=== PATIENT | female | born 1980 | race Two or more races ===

== ENCOUNTER 2020-01-18 04:01 | Emergency (ER) | payer SELFPAY ==
[~2020-01-18] VITALS: Ht 152.4 cm; Wt 50.0 kg
--- NOTE | 2020-01-18 04:58 | PHYS DOC ---
Past Medical History Past Medical History: No Pertinent History (RASHARD HOLLEY DO) Past Surgical History: No Surgical History (RASHARD HOLLEY DO) Smoking Status: Never Smoker Alcohol Use: None (RASHARD HOLLEY DO) General Adult EDM: Chief Complaint: ABDOMINAL PAIN IN HPI: HPI: The history was obtained from the patient. Patient is a 39-year-old female with no reported PMH who presents with a chief complaint of vaginal bleeding over the past 24 hours. She notes that she has soaked through 2 pads. She does note quarter size clot passage. Notes mild suprapubic abdominal cramping. States the first day of her last menstrual period was November 18. States that she has tested positive for at home. Not received any care including ultrasound to date. Denies syncope. Denies chest pain or shortness of breath. Denies urinary symptoms. Denies changes to her stool caliber or consistency. No other complaints. (RASHARD HOLLEY DO) Review of Systems: Review of Systems: Constitutional: Denies fever or chills. [] Eyes: Denies change in visual acuity. [] HENT: Denies nasal congestion or sore throat. [] Respiratory: Denies cough or shortness of breath. [] Cardiovascular: Denies chest pain or edema. [] GI: Positive for abdominal pain : Positive for vaginal bleeding Musculoskeletal: Denies back pain or joint pain. [] Integument: Denies rash. [] Neurologic: Denies headache, focal weakness or sensory changes. [] Endocrine: Denies polyuria or polydipsia. [] Lymphatic: Denies swollen glands. [] Psychiatric: Denies depression or anxiety. [] (RASHARD HOLLEY DO) Heart Score: Risk Factors: Risk Factors: DM, Current or recent (<one month) smoker, HTN, HLP, family history of CAD, obesity. Risk Scores: Score 0 - 3: 2.5% MACE over next 6 weeks - Discharge Home Score 4 - 6: 20.3% MACE over next 6 weeks - Admit for Clinical Observation Score 7 - 10: 72.7% MACE over next 6 weeks - Early Invasive Strategies (RASHARD HOLLEY DO) Allergies: Allergies: Allergies Coded Allergies Type Severity Reaction Last Updated Verified No Known Drug Allergies 01/18/20 No (RAHSARD HOLLEY DO) Physical Exam: PE: Constitutional: Well developed, well nourished, no acute distress, non-toxic appearance. [] HENT: Normocephalic, atraumatic, bilateral external ears normal, oropharynx moist, no oral exudates, nose normal. [] Eyes: PERRLA, EOMI, conjunctiva normal, no discharge. [] Neck: Normal range of motion, no tenderness, supple, no stridor. [] Cardiovascular:Heart rate regular rhythm, no murmur [] Lungs & Thorax: Bilateral breath sounds clear to auscultation [] Abdomen: Soft, nontender, nonacute abdomen. No involuntary guarding or rigidity noted. No acute peritonitis. : Chaperoned by KEENAN Leonardo. No active bleeding visualized. Minimal blood noted in the vaginal canal. Cervical os is closed. No lacerations appreciated. No clots or tissue visualized. Skin: Warm, dry, no erythema, no rash. [] Back: No tenderness, no CVA tenderness. [] Extremities: No tenderness, no cyanosis, no clubbing, ROM intact, no edema. [] Neurologic: Alert and oriented X 3, normal motor function, normal sensory function, no focal deficits noted. [] Psychologic: Affect normal, judgement normal, mood normal. [] (RASHARD HOLLEY DO) Current Patient Data: Labs: Laboratory Tests Test 01/18/20 04:26 POC Urine HCG, Qualitative Hcg positive (Negative) Vital Signs: Vital Signs Date Time Temp Pulse Resp B/P (MAP) Pulse Ox O2 Delivery O2 Flow Rate FiO2 01/18/20 04:49 98.3 72 16 118/76 (90) 97 Room Air 98.3 (RASHARD HOLLEY DO) EKG: EKG: [] (RASHARD HOLLEY DO) Radiology/Procedures: Radiology/Procedures: [] (RASHARD HOLLEY DO) Radiology/Procedures: [facility] [address] [place] [address] IMAGING REPORT Signed PATIENT: JOANNA LACEYCCOUNT: [id number] : 1980 LOCATION: ER AGE: 39 SEX: F EXAM STATUS: REG ER ORD. PHYSICIAN: RASHARD HOLLEY DO REASON: vaginal bleeding with . confirm IUP PROCEDURE: OB <14 WKS W/TV INDICATION: Reason: vaginal bleeding with . confirm IUP / Spl. Instructions: / History: COMPARISON: None. TECHNIQUE: Grayscale and color ultrasound images uterus and adnexa. Transabdominal and transvaginal images obtained. Transvaginal images were needed to better visualize structures that were limited on transabdominal imaging. FINDINGS: Uterus: 96 x 67 x 60 mm. Small free fluid. Intrauterine gestational sac is identified. pole with crown-rump length of 7 mm and heart beat of 82. 7 x 5 mm hypoechoic structure within the fundus of the uterus near gestational sac. Additional 17 x 17 mm hypoechoic lesion at myometrium. Right Ovary: 38 x 24 x 17 mm. Left Ovary: 33 x 23 x 19 mm. Vascular flow identified to bilateral ovaries. IMPRESSION: * Intrauterine is identified with estimated gestational age of 6 weeks and 4 days with a low heart rate of 82. Would obtain follow-up to ensure there is appropriate development. * There is a couple of hypoechoic structures within the myometrium which could be secondary to small fibroid. Electronically signed by: Chelsie Perry MD (01/18/2020 7:13 AM) [id number] DICTATED and SIGNED BY: CHELSIE PERRY MD DATE: 01/18/20 0713 (PATTY CARLISLE DO) Course & Med Decision Making: Course & Med Decision Making Pertinent Labs and Imaging studies reviewed. (See chart for details) [] Patient is a 39-year-old female presents with chief complaint of vaginal bleeding associate with . Mild suprapubic cramping noted. Pelvic exam noted above. hCG level approximately 5000. Ultrasound imaging pending at this time. Type and screen pending at this time. Patient likely experiencing threatened miscarriage. I did dissipate discharge home. She was given metronidazole vaginal gel for potential bacterial vaginosis. I have signed out the patient's emergency department care to Dr. Carlisle. We discussed the history, physical exam findings, completed and pending laboratory results and imaging studies. We have also discussed the current treatment plan and expected clinical course. Please refer to chart for the patient's remaining emergency department course, final disposition, and clinical impression(s). (RASHARD HOLLEY DO) Course & Med Decision Making Patient is a 39-year-old female who was found to be , ultrasound show 6- week IUP, her blood type O-, patient was given RhoGam in the ER. Patient will be discharged home, she will need to follow-up with [facility] doctor next week for OB care. (PATTY CARLISLE DO) Dragon Disclaimer: Dragon Disclaimer: This electronic medical record was generated, in whole or in part, using a voice recognition dictation system. (RASHARD HOLLEY DO) Departure Departure Impression: Primary Impression: Threatened in first trimester Disposition: HOME, SELF-CARE Condition: STABLE Referrals: NO PCP (PCP) LILLIE JENSEN MD please follow up with this [facility] doctor next week for reevaluation. Patient Instructions: RhoGAM, Threatened Miscarriage Additional Instructions: Thank you for visiting our Emergency Department. We appreciate you trusting us with your care. If any additional problems come up don't hesitate to return to visit us. Please follow up with your primary care provider so they can plan additional care if needed and know about the problem that you had. If symptoms worsen come back to the Emergency Department. Any concerning symptoms that start such as chest pain, shortness of air, weakness or numbness on one side of the body, running high fevers or any other concerning symptoms return to the ER. Justicifation of Admission Dx: Justifications for Admission: Justification of Admission Dx: N/A (RASHARD HOLLEY DO) Justification of Admission Dx: N/A (PATTY CARLISLE DO) RASHARD HOLLEY DO Jan 18, 2020 04:58 PATTY CARLISLE DO Jan 18, 2020 08:35
[2020-01-18 05:06] LABS: BASO % 0 % (0-3); EOS % 1 % (0-3); HEMATOCRIT 41.8 % (36.0-47.0); HEMOGLOBIN 13.8 g/dL (12.0-15.5); LYMPH # 1.1 x10^3/uL (1.0-4.8); LYMPH % 14 % (24-48); MEAN CORPUSCULAR HEMOGLOBIN 30 pg (25-35); MEAN CORPUSCULAR HGB CONC 33 g/dL (31-37); MEAN CORPUSCULAR VOLUME 92 fL (79-100); MONO # 0.5 x10^3/uL (0.0-1.1); MONO % 7 % (0-9); NEUT # 6.4 x10^3/uL (1.8-7.7); NEUT % 79 % (31-73); PLATELET COUNT 236 x10^3/uL (140-400); RED BLOOD COUNT 4.56 x10^6/uL (3.50-5.40); RED CELL DISTRIBUTION WIDTH 13.7 % (11.5-14.5); WHITE BLOOD COUNT 8.1 x10^3/uL (4.0-11.0)
[2020-01-18 05:21] LABS: CALCIUM 8.8 mg/dL (8.5-10.1); CREATININE 0.6 mg/dL (0.6-1.0); GFR 110.2; POTASSIUM 3.4 mmol/L (3.5-5.1)
[2020-01-18] MEDS ORDERED: metroNIDAZOLE 0.75% VAGINAL 70GM TUBE. VG ONE (05:45)
--- NOTE | 2020-01-18 07:16 | RAD ---
INDICATION: Reason: vaginal bleeding with . confirm IUP / Spl. Instructions: / History: COMPARISON: None. TECHNIQUE: Grayscale and color ultrasound images uterus and adnexa. Transabdominal and transvaginal images obtained. Transvaginal images were needed to better visualize structures that were limited on transabdominal imaging. FINDINGS: Uterus: 96 x 67 x 60 mm. Small free fluid. Intrauterine gestational sac is identified. pole with crown-rump length of 7 mm and heart beat of 82. 7 x 5 mm hypoechoic structure within the fundus of the uterus near gestational sac. Additional 17 x 17 mm hypoechoic lesion at myometrium. Right Ovary: 38 x 24 x 17 mm. Left Ovary: 33 x 23 x 19 mm. Vascular flow identified to bilateral ovaries. IMPRESSION: * Intrauterine is identified with estimated gestational age of 6 weeks and 4 days with a low heart rate of 82. Would obtain follow-up to ensure there is appropriate development. * There is a couple of hypoechoic structures within the myometrium which could be secondary to small fibroid. Electronically signed by: Porter Green MD (01/18/2020 7:13 AM) [id number]
[2020-01-18 08:33] VITALS: BP 109/66
[2020-01-20 01:08] LABS: GC PROBE Negative (Negative)
== END 2020-01-18 09:14 | disposition home or self-care (01) ==
LOC: ER 04:01
DX: O20.0 Threatened abortion (principal); R10.30 Lower abdominal pain, unspecified; Z3A.01 Less than 8 weeks gestation of pregnancy
CPT/HCPCS: 36415; 76801; 76817; 80048; 81025; 84702; 85025; 86850; 86900; 86901; 87491; 87591; 99285; J2791; Q0111